=== PATIENT | female | born 1970 | race Caucasian/White ===

== ENCOUNTER → 2020-01-17 | Outpatient (CLI) | payer SELFPAY ==
--- NOTE | 2020-01-17 12:06 | Diagnostic Imaging Report ---
Indication: Shortness of breath and cough for one week. Time of exam: 10:42 AM No prior studies are available for comparison. The heart size is normal. The pulmonary vascularity is unremarkable. The lungs are clear. No infiltrate, effusion or pneumothorax is detected. Impression: No acute cardiopulmonary process is detected. Dictated by: Dictated on workstation # [id number]
== END ==
LOC: RAD FS 10:34
PROVIDERS: ATTEND Emergency Medicine
DX: R05 Cough (principal); R06.02 Shortness of breath
CPT/HCPCS: 71046